=== PATIENT | male | born 1985 | race Caucasian/White ===

== ENCOUNTER 2022-11-03 11:46 | Inpatient (IN) | payer OTHER ==
[2022-11-03 12:29] VITALS: BMI 21.7
[2022-11-03] MEDS ORDERED: ONDANSETRON *ODT* 4 MG TABLET SL PRN (13:08)
[2022-11-03] MEDS ORDERED: IBUPROFEN 400 MG TABLET (FP) PO PRN (13:08)
[2022-11-03] MEDS ORDERED: ACETAMINOPHEN 325 MG TABLET (FP) PO PRN ×2 (13:08)
[2022-11-03] MEDS ORDERED: NICOTINE 21 MG/24 HOURS TOPICAL PATCH TD PRN (13:08)
[2022-11-03] MEDS ORDERED: MAGNESIUM HYDROX 2400MG/30ML ORAL SUSPENSION 30 ML CUP PO PRN (13:08)
[2022-11-03] MEDS ORDERED: POLYETHYLENE GLYCOL (HEALTHYLAX) 3350 17 GM PACKET PO PRN (13:08)
[2022-11-03] MEDS ORDERED: cloNIDine HCL 0.1 MG TABLET PO ONE (13:08)
[2022-11-03] MEDS ORDERED: BISMUTH SUBSALICYLATE 524 MG/30 ML PO PRN (13:08)
[2022-11-03] MEDS ORDERED: BENZOCAINE/MENTHOL (CHLORASEPTIC ) LOZENGE MM PRN (13:08)
[2022-11-03] MEDS ORDERED: BUPRENORPHINE HCL 150 MCG, BUPRENORPHINE HCL 75 MCG BC PRN (13:08)
[2022-11-03] MEDS ORDERED: MAG HYDROX/AL HYDROX/SIMETH 30 ML UNIT-DOSE CUP PO PRN (13:08)
[2022-11-03] MEDS ORDERED: NALOXONE HCL (KLOXXADO) 8 MG SPRAY NS PRN (13:08)
[2022-11-03] MEDS ORDERED: LOPERAMIDE HCL 2 MG CAPSULE PO PRN (13:08)
[2022-11-03] MEDS ORDERED: NICOTINE 10 MG CARTRIDGE (INHALER) IH PRN (13:08)
[2022-11-03] MEDS ORDERED: IBUPROFEN 600 MG TABLET (FP) PO PRN (13:08)
[2022-11-03] MEDS: PRENATAL VITAMINS W/ FOLIC ACID TABLET (FP) PO SCH (14:38)
[2022-11-03] MEDS: METHOCARBAMOL 500 MG TABLET PO PRN ×2 (14:38→22:32)
[2022-11-03] MEDS: diazePAM 5 MG TABLET PO PRN ×2 (14:39→22:33)
[2022-11-03] MEDS: THIAMINE HCL 100 MG TABLET (FP) PO SCH (22:31)
[2022-11-03] MEDS: MELATONIN 5 MG TABLETS PO SCH (22:31)
[2022-11-03] MEDS: hydrOXYzine PAMOATE 25 MG CAPSULE (FP) PO PRN (22:32)
[2022-11-03] MEDS: cloNIDine HCL 0.1 MG TABLET PO PRN (22:33)
[2022-11-04] MEDS ORDERED: BUPRENORPHINE HCL 150 MCG, BUPRENORPHINE HCL 75 MCG BC PRN
[2022-11-04] MEDS: BUPRENORPHINE HCL 150 MCG, BUPRENORPHINE HCL 75 MCG BC SCH ×2 (06:31→18:23)
[2022-11-04] MEDS: PRENATAL VITAMINS W/ FOLIC ACID TABLET (FP) PO SCH (10:21)
[2022-11-04] MEDS: hydrOXYzine PAMOATE 25 MG CAPSULE (FP) PO PRN (10:23)
[2022-11-04] MEDS: diazePAM 5 MG TABLET PO PRN ×2 (10:23→22:28)
[2022-11-04 11:55] LABS: HEMATOCRIT 41.3 % (35.4-49); HEMOGLOBIN 13.5 GM/dL (11.7-16.9); MCH 27.2 pg (25.7-33.7); MCHC 32.6 g/dl (32.0-35.9); MEAN CELL VOLUME 83.5 fl (80-96); MEAN PLT VOLUME 9.8 fl (7.5-11.1); PLATELET COUNT 218 10^3/uL (134-434); RBC 4.95 M/mm3 (4.00-5.60); RDW 16.2 % (11.9-15.9); WHITE BLOOD COUNT 6.2 K/mm3 (4.0-10.0)
[2022-11-04 12:02] LABS: ALBUMIN 3.4 g/dl (3.4-5.0); BLOOD UREA NITROGEN 8.3 mg/dL (7-18); CALCIUM 8.7 mg/dL (8.5-10.1)
[2022-11-04 12:04] LABS: CREATININE 0.6 mg/dL (0.55-1.3)
[2022-11-04 12:06] LABS: BILIRUBIN,TOTAL 0.3 mg/dL (0.2-1); TOT PROT 7.3 g/dl (6.4-8.2)
[2022-11-04] MEDS: cloNIDine HCL 0.1 MG TABLET PO PRN (12:37)
[2022-11-04] MEDS: DICYCLOMINE HCL 10 MG CAPSULE PO PRN (18:24)
[2022-11-04] MEDS: THIAMINE HCL 100 MG TABLET (FP) PO SCH (22:26)
[2022-11-04] MEDS: MELATONIN 5 MG TABLETS PO SCH (22:26)
[2022-11-04] MEDS: METHOCARBAMOL 500 MG TABLET PO PRN (22:27)
[2022-11-05] MEDS: BUPRENORPHINE/NALOXONE 2 MG/0.5 MG FILM PACKET SL SCH ×2 (05:47→17:13)
[2022-11-05] MEDS: PRENATAL VITAMINS W/ FOLIC ACID TABLET (FP) PO SCH (10:04)
[2022-11-05] MEDS: diazePAM 5 MG TABLET PO PRN (10:05)
[2022-11-05] MEDS: cloNIDine HCL 0.1 MG TABLET PO PRN ×3 (10:13→18:54)
[2022-11-05] MEDS: hydrOXYzine PAMOATE 25 MG CAPSULE (FP) PO PRN ×2 (12:19→18:54)
[2022-11-05] MEDS: METHOCARBAMOL 500 MG TABLET PO PRN ×2 (12:19→18:53)
[2022-11-05] MEDS: DICYCLOMINE HCL 10 MG CAPSULE PO PRN (18:53)
[2022-11-05] MEDS ORDERED: diazePAM 5 MG TABLET PO ONE (22:25)
[2022-11-05] MEDS: THIAMINE HCL 100 MG TABLET (FP) PO SCH (22:34)
[2022-11-05] MEDS: MELATONIN 5 MG TABLETS PO SCH (22:34)
[2022-11-05] MEDS: risperiDONE 1 MG TABLET PO SCH (22:34)
[2022-11-06] MEDS: BUPRENORPHINE/NALOXONE 4 MG/1 MG FILM PACKET SL SCH ×2 (05:36→17:16)
[2022-11-06] MEDS: risperiDONE 1 MG TABLET PO SCH ×2 (10:05→22:10)
[2022-11-06] MEDS: PRENATAL VITAMINS W/ FOLIC ACID TABLET (FP) PO SCH (10:05)
[2022-11-06] MEDS: hydrOXYzine PAMOATE 25 MG CAPSULE (FP) PO PRN ×2 (10:07→22:10)
[2022-11-06] MEDS: cloNIDine HCL 0.1 MG TABLET PO PRN ×2 (11:22→21:04)
[2022-11-06] MEDS: METHOCARBAMOL 500 MG TABLET PO PRN ×2 (11:23→17:15)
[2022-11-06] MEDS: THIAMINE HCL 100 MG TABLET (FP) PO SCH (22:10)
[2022-11-06] MEDS: MELATONIN 5 MG TABLETS PO SCH (22:11)
[2022-11-07] MEDS ORDERED: BUPRENORPHINE/NALOXONE 8 MG/2 MG FILM PACKET SL ONE (06:00)
[2022-11-07] MEDS: risperiDONE 1 MG TABLET PO SCH (09:06)
[2022-11-07] MEDS: PRENATAL VITAMINS W/ FOLIC ACID TABLET (FP) PO SCH (09:06)
[2022-11-07 11:26] VITALS: BP 144/79; PULSE 90; RESP 16; TEMP 96.4
== END 2022-11-07 12:40 | disposition other institution (70) | DRG 773 ==
LOC: YASAS 11:46 → Y6N 14:01 → Y3N 21:18
PROVIDERS: ADMIT Allergy & Immunology; ATTEND Family Medicine
PROC: HZ2ZZZZ Detoxification Services for Substance Abuse Treatment (ICD-10-PCS; principal; 2022-11-03)
DX: F11.23 Opioid dependence with withdrawal (principal); F14.20 Cocaine dependence, uncomplicated; F16.20 Hallucinogen dependence, uncomplicated; F12.20 Cannabis dependence, uncomplicated; F17.210 Nicotine dependence, cigarettes, uncomplicated; F19.24 Other psychoactive substance dependence with psychoactive substance-induced mood disorder; F31.9 Bipolar disorder, unspecified; F41.9 Anxiety disorder, unspecified; G47.00 Insomnia, unspecified; Z62.810 Personal history of physical and sexual abuse in childhood; Z86.19 Personal history of other infectious and parasitic diseases; Z86.59 Personal history of other mental and behavioral disorders; Z91.199 Patient's noncompliance with other medical treatment and regimen due to unspecified reason
CPT/HCPCS: 36415; 80053; 82962; 85027; 86780; C9803-CS; U0003; U0005

== ENCOUNTER 2022-11-07 12:45 | Inpatient (IN) | payer OTHER ==
[2022-11-07] MEDS ORDERED: MAGNESIUM HYDROX 2400MG/30ML ORAL SUSPENSION 30 ML CUP PO PRN (13:59)
[2022-11-07] MEDS ORDERED: IBUPROFEN 400 MG TABLET (FP) PO PRN (13:59)
[2022-11-07] MEDS ORDERED: POLYETHYLENE GLYCOL (HEALTHYLAX) 3350 17 GM PACKET PO PRN (13:59)
[2022-11-07] MEDS ORDERED: NICOTINE 7 MG/24 HOURS TOPICAL PATCH TD PRN (13:59)
[2022-11-07] MEDS ORDERED: P-EPHED 60MG/TRIPROLIDI 2.5MG TABLET PO PRN (13:59)
[2022-11-07] MEDS ORDERED: NICOTINE 10 MG CARTRIDGE (INHALER) IH PRN (13:59)
[2022-11-07] MEDS ORDERED: guaiFENesin 200 MG/10 ML 10 ML UNIT-DOSE CUPS PO PRN (13:59)
[2022-11-07] MEDS ORDERED: ACETAMINOPHEN 325 MG TABLET (FP) PO PRN (13:59)
[2022-11-07] MEDS ORDERED: BENZOCAINE/MENTHOL (CHLORASEPTIC ) LOZENGE MM PRN (13:59)
[2022-11-07] MEDS: AMOX TR/POT CLAV 875MG/125MG TABLETS (FP) PO SCH (17:36)
[2022-11-07] MEDS: THIAMINE HCL 100 MG TABLET (FP) PO SCH (21:11)
[2022-11-07] MEDS: MELATONIN 5 MG TABLETS PO SCH (21:11)
[2022-11-07] MEDS: risperiDONE 1 MG TABLET PO SCH (21:12)
[2022-11-07] MEDS ORDERED: BUPRENORPHINE/NALOXONE 8 MG/2 MG FILM PACKET SL SCH (22:00)
[2022-11-08] MEDS: hydrOXYzine PAMOATE 25 MG CAPSULE (FP) PO PRN ×3 (06:33→21:03)
[2022-11-08] MEDS: AMOX TR/POT CLAV 875MG/125MG TABLETS (FP) PO SCH ×2 (07:15→16:35)
[2022-11-08] MEDS: BUPRENORPHINE/NALOXONE 8 MG/2 MG FILM PACKET SL SCH ×2 (08:48→18:30)
[2022-11-08] MEDS: risperiDONE 1 MG TABLET PO SCH ×2 (09:19→21:03)
[2022-11-08] MEDS: PRENATAL VITAMINS W/ FOLIC ACID TABLET (FP) PO SCH (09:19)
[2022-11-08] MEDS ORDERED: BUPRENORPHINE/NALOXONE 8 MG/2 MG FILM PACKET SL SCH (10:00)
[2022-11-08] MEDS ORDERED: FLU VACC QS2022-23(6MOS UP)/PF 60 MCG/0.5 ML SYRINGE IM ONE (12:00)
[2022-11-08] MEDS ORDERED: PNEUMOC 20-VAL CONJ-DIP CRM/PF 0.5 ML SYRINGE IM ONE (12:00)
[2022-11-08 12:32] LABS: HIV INTERPRETATION NEGATIVE (NEGATIVE)
[2022-11-08] MEDS: MELATONIN 5 MG TABLETS PO SCH (21:03)
[2022-11-08] MEDS: THIAMINE HCL 100 MG TABLET (FP) PO SCH (21:03)
[2022-11-09] MEDS: BUPRENORPHINE/NALOXONE 8 MG/2 MG FILM PACKET SL SCH ×2 (06:10→17:39)
[2022-11-09] MEDS: AMOX TR/POT CLAV 875MG/125MG TABLETS (FP) PO SCH ×2 (07:15→17:39)
[2022-11-09] MEDS: hydrOXYzine PAMOATE 25 MG CAPSULE (FP) PO PRN ×2 (07:15→21:07)
[2022-11-09] MEDS: risperiDONE 1 MG TABLET PO SCH ×2 (09:49→21:07)
[2022-11-09] MEDS: PRENATAL VITAMINS W/ FOLIC ACID TABLET (FP) PO SCH (09:49)
[2022-11-09] MEDS: MAG HYDROX/AL HYDROX/SIMETH 30 ML UNIT-DOSE CUP PO PRN (10:06)
[2022-11-09] MEDS: THIAMINE HCL 100 MG TABLET (FP) PO SCH (21:07)
[2022-11-09] MEDS: MELATONIN 5 MG TABLETS PO SCH (21:07)
[2022-11-09] MEDS: BACLOFEN 10 MG TABLET (FP) PO PRN (21:07)
[2022-11-10] MEDS: BUPRENORPHINE/NALOXONE 8 MG/2 MG FILM PACKET SL SCH ×2 (06:34→17:45)
[2022-11-10] MEDS: hydrOXYzine PAMOATE 25 MG CAPSULE (FP) PO PRN ×3 (06:34→21:06)
[2022-11-10] MEDS: AMOX TR/POT CLAV 875MG/125MG TABLETS (FP) PO SCH ×2 (07:41→16:45)
[2022-11-10] MEDS: BACLOFEN 10 MG TABLET (FP) PO PRN ×2 (08:53→21:06)
[2022-11-10] MEDS: PRENATAL VITAMINS W/ FOLIC ACID TABLET (FP) PO SCH (10:18)
[2022-11-10] MEDS: risperiDONE 1 MG TABLET PO SCH (10:18)
[2022-11-10] MEDS: MAG HYDROX/AL HYDROX/SIMETH 30 ML UNIT-DOSE CUP PO PRN (15:00)
[2022-11-10] MEDS: LOPERAMIDE HCL 2 MG CAPSULE PO PRN (18:21)
[2022-11-10] MEDS: THIAMINE HCL 100 MG TABLET (FP) PO SCH (21:06)
[2022-11-10] MEDS: MELATONIN 5 MG TABLETS PO SCH (21:06)
[2022-11-10] MEDS: QUEtiapine FUMARATE 100 MG TABLET (FP) PO SCH (21:07)
[2022-11-10] MEDS ORDERED: SUVOREXANT 10 MG TABLET PO PRN (22:00)
[2022-11-11] MEDS: BUPRENORPHINE/NALOXONE 8 MG/2 MG FILM PACKET SL SCH ×2 (06:19→17:51)
[2022-11-11] MEDS: AMOX TR/POT CLAV 875MG/125MG TABLETS (FP) PO SCH ×2 (07:07→16:49)
[2022-11-11] MEDS: PRENATAL VITAMINS W/ FOLIC ACID TABLET (FP) PO SCH (09:03)
[2022-11-11] MEDS: QUEtiapine FUMARATE 50 MG TABLET PO SCH (09:04)
[2022-11-11] MEDS: hydrOXYzine PAMOATE 25 MG CAPSULE (FP) PO PRN ×2 (09:04→21:01)
[2022-11-11] MEDS: MAG HYDROX/AL HYDROX/SIMETH 30 ML UNIT-DOSE CUP PO PRN (11:05)
[2022-11-11] MEDS: LOPERAMIDE HCL 2 MG CAPSULE PO PRN (16:50)
[2022-11-11] MEDS: THIAMINE HCL 100 MG TABLET (FP) PO SCH (21:01)
[2022-11-11] MEDS: QUEtiapine FUMARATE 100 MG TABLET (FP) PO SCH (21:01)
[2022-11-11] MEDS: MELATONIN 5 MG TABLETS PO SCH (21:01)
[2022-11-12] MEDS: BUPRENORPHINE/NALOXONE 8 MG/2 MG FILM PACKET SL SCH ×2 (06:05→19:40)
[2022-11-12] MEDS: AMOX TR/POT CLAV 875MG/125MG TABLETS (FP) PO SCH ×2 (07:28→16:45)
[2022-11-12] MEDS: PRENATAL VITAMINS W/ FOLIC ACID TABLET (FP) PO SCH (09:58)
[2022-11-12] MEDS: QUEtiapine FUMARATE 50 MG TABLET PO SCH (09:58)
[2022-11-12] MEDS: hydrOXYzine PAMOATE 25 MG CAPSULE (FP) PO PRN ×3 (09:59→21:05)
[2022-11-12] MEDS: BACLOFEN 10 MG TABLET (FP) PO PRN ×2 (15:26→21:05)
[2022-11-12] MEDS: GABAPENTIN 100 MG CAPSULE PO SCH ×2 (15:26→21:05)
[2022-11-12] MEDS: MELATONIN 5 MG TABLETS PO SCH (21:04)
[2022-11-12] MEDS: THIAMINE HCL 100 MG TABLET (FP) PO SCH (21:04)
[2022-11-12] MEDS: QUEtiapine FUMARATE 200 MG TABLET PO SCH (21:06)
[2022-11-13] MEDS: BUPRENORPHINE/NALOXONE 8 MG/2 MG FILM PACKET SL SCH ×2 (06:46→17:40)
[2022-11-13] MEDS: GABAPENTIN 100 MG CAPSULE PO SCH ×3 (06:46→21:17)
[2022-11-13] MEDS: hydrOXYzine PAMOATE 25 MG CAPSULE (FP) PO PRN ×2 (06:47→15:37)
[2022-11-13] MEDS: AMOX TR/POT CLAV 875MG/125MG TABLETS (FP) PO SCH ×2 (08:48→17:40)
[2022-11-13] MEDS: QUEtiapine FUMARATE 100 MG TABLET (FP) PO SCH (09:56)
[2022-11-13] MEDS: PRENATAL VITAMINS W/ FOLIC ACID TABLET (FP) PO SCH (09:56)
[2022-11-13] MEDS: THIAMINE HCL 100 MG TABLET (FP) PO SCH (21:17)
[2022-11-13] MEDS: MELATONIN 5 MG TABLETS PO SCH (21:17)
[2022-11-13] MEDS: QUEtiapine FUMARATE 200 MG TABLET PO SCH (21:17)
[2022-11-13] MEDS: BACLOFEN 10 MG TABLET (FP) PO PRN (21:17)
[2022-11-14] MEDS: BUPRENORPHINE/NALOXONE 8 MG/2 MG FILM PACKET SL SCH ×2 (06:16→17:49)
[2022-11-14] MEDS: GABAPENTIN 100 MG CAPSULE PO SCH ×3 (06:16→21:00)
[2022-11-14] MEDS: AMOX TR/POT CLAV 875MG/125MG TABLETS (FP) PO SCH ×2 (07:20→17:49)
[2022-11-14] MEDS: PRENATAL VITAMINS W/ FOLIC ACID TABLET (FP) PO SCH (10:10)
[2022-11-14] MEDS: QUEtiapine FUMARATE 100 MG TABLET (FP) PO SCH (10:11)
[2022-11-14] MEDS: hydrOXYzine PAMOATE 25 MG CAPSULE (FP) PO PRN (10:12)
[2022-11-14] MEDS: MELATONIN 5 MG TABLETS PO SCH (21:00)
[2022-11-14] MEDS: THIAMINE HCL 100 MG TABLET (FP) PO SCH (21:00)
[2022-11-14] MEDS: QUEtiapine FUMARATE 200 MG TABLET PO SCH (21:00)
[2022-11-15] MEDS: BUPRENORPHINE/NALOXONE 8 MG/2 MG FILM PACKET SL SCH ×2 (06:09→17:28)
[2022-11-15] MEDS: GABAPENTIN 100 MG CAPSULE PO SCH ×3 (06:09→21:08)
[2022-11-15] MEDS: AMOX TR/POT CLAV 875MG/125MG TABLETS (FP) PO SCH ×2 (07:03→17:28)
[2022-11-15] MEDS: QUEtiapine FUMARATE 100 MG TABLET (FP) PO SCH (09:15)
[2022-11-15] MEDS: PRENATAL VITAMINS W/ FOLIC ACID TABLET (FP) PO SCH (09:15)
[2022-11-15] MEDS: hydrOXYzine PAMOATE 25 MG CAPSULE (FP) PO PRN ×3 (09:15→21:08)
[2022-11-15] MEDS: THIAMINE HCL 100 MG TABLET (FP) PO SCH (21:08)
[2022-11-15] MEDS: MELATONIN 5 MG TABLETS PO SCH (21:08)
[2022-11-15] MEDS: QUEtiapine FUMARATE 200 MG TABLET PO SCH (21:08)
[2022-11-16] MEDS: GABAPENTIN 100 MG CAPSULE PO SCH ×3 (06:13→21:08)
[2022-11-16] MEDS: BUPRENORPHINE/NALOXONE 8 MG/2 MG FILM PACKET SL SCH ×2 (06:13→17:38)
[2022-11-16] MEDS: AMOX TR/POT CLAV 875MG/125MG TABLETS (FP) PO SCH ×2 (08:04→17:38)
[2022-11-16] MEDS: PRENATAL VITAMINS W/ FOLIC ACID TABLET (FP) PO SCH (09:57)
[2022-11-16] MEDS: hydrOXYzine PAMOATE 25 MG CAPSULE (FP) PO PRN ×3 (09:58→21:09)
[2022-11-16] MEDS: QUEtiapine FUMARATE 100 MG TABLET (FP) PO SCH (09:58)
[2022-11-16] MEDS: MELATONIN 5 MG TABLETS PO SCH (21:05)
[2022-11-16] MEDS: THIAMINE HCL 100 MG TABLET (FP) PO SCH (21:05)
[2022-11-16] MEDS: QUEtiapine FUMARATE 200 MG TABLET PO SCH (21:08)
[2022-11-17] MEDS: GABAPENTIN 100 MG CAPSULE PO SCH ×3 (06:09→21:11)
[2022-11-17] MEDS: BUPRENORPHINE/NALOXONE 8 MG/2 MG FILM PACKET SL SCH ×2 (06:09→17:56)
[2022-11-17] MEDS: AMOX TR/POT CLAV 875MG/125MG TABLETS (FP) PO SCH ×2 (08:33→17:57)
[2022-11-17] MEDS: QUEtiapine FUMARATE 100 MG TABLET (FP) PO SCH (09:35)
[2022-11-17] MEDS: hydrOXYzine PAMOATE 25 MG CAPSULE (FP) PO PRN ×2 (09:35→21:12)
[2022-11-17] MEDS: PRENATAL VITAMINS W/ FOLIC ACID TABLET (FP) PO SCH (09:35)
[2022-11-17] MEDS: BACLOFEN 10 MG TABLET (FP) PO PRN (21:11)
[2022-11-17] MEDS: THIAMINE HCL 100 MG TABLET (FP) PO SCH (21:11)
[2022-11-17] MEDS: QUEtiapine FUMARATE 200 MG TABLET PO SCH (21:11)
[2022-11-17] MEDS: MELATONIN 5 MG TABLETS PO SCH (21:12)
[2022-11-18] MEDS: BUPRENORPHINE/NALOXONE 8 MG/2 MG FILM PACKET SL SCH ×2 (06:16→17:32)
[2022-11-18] MEDS: GABAPENTIN 100 MG CAPSULE PO SCH ×3 (06:16→21:16)
[2022-11-18] MEDS: hydrOXYzine PAMOATE 25 MG CAPSULE (FP) PO PRN ×4 (08:27→21:16)
[2022-11-18] MEDS: AMOX TR/POT CLAV 875MG/125MG TABLETS (FP) PO SCH ×2 (08:27→17:32)
[2022-11-18] MEDS: PRENATAL VITAMINS W/ FOLIC ACID TABLET (FP) PO SCH (10:15)
[2022-11-18] MEDS: QUEtiapine FUMARATE 100 MG TABLET (FP) PO SCH (10:15)
[2022-11-18] MEDS: QUEtiapine FUMARATE 200 MG TABLET PO SCH (21:16)
[2022-11-18] MEDS: THIAMINE HCL 100 MG TABLET (FP) PO SCH (21:16)
[2022-11-18] MEDS: BACLOFEN 10 MG TABLET (FP) PO PRN (21:16)
[2022-11-18] MEDS: MELATONIN 5 MG TABLETS PO SCH (22:51)
[2022-11-19] MEDS: GABAPENTIN 100 MG CAPSULE PO SCH (06:11)
[2022-11-19] MEDS: BUPRENORPHINE/NALOXONE 8 MG/2 MG FILM PACKET SL SCH (06:11)
[2022-11-19] MEDS: AMOX TR/POT CLAV 875MG/125MG TABLETS (FP) PO SCH (07:40)
[2022-11-19 08:07] VITALS: BP 119/72; PULSE 69; RESP 16; TEMP 97.3
[2022-11-19] MEDS: QUEtiapine FUMARATE 100 MG TABLET (FP) PO SCH (09:25)
[2022-11-19] MEDS: hydrOXYzine PAMOATE 25 MG CAPSULE (FP) PO PRN (09:25)
[2022-11-19] MEDS: PRENATAL VITAMINS W/ FOLIC ACID TABLET (FP) PO SCH (09:25)
== END 2022-11-19 10:52 | disposition home or self-care (01) | DRG 772 ==
LOC: YASAS 12:45 → Y3E 12:46
PROVIDERS: ADMIT Allergy & Immunology; ATTEND Psychiatry & Neurology Pain Medicine
PROC: HZ42ZZZ Group Counseling for Substance Abuse Treatment, Cognitive-Behavioral (ICD-10-PCS; principal; 2022-11-07)
DX: F11.20 Opioid dependence, uncomplicated (principal); F14.20 Cocaine dependence, uncomplicated; F16.10 Hallucinogen abuse, uncomplicated; F12.10 Cannabis abuse, uncomplicated; F17.210 Nicotine dependence, cigarettes, uncomplicated; F31.9 Bipolar disorder, unspecified; F41.9 Anxiety disorder, unspecified; G47.00 Insomnia, unspecified; Z86.19 Personal history of other infectious and parasitic diseases; Z99.89 Dependence on other enabling machines and devices; Z59.00 Homelessness unspecified
CPT/HCPCS: 36415; 82140; 83036; 86803; 87389; 87522; 90677; G0008; J0475; Q2036

== ENCOUNTER 2022-12-04 18:29 | Inpatient (IN) | payer OTHER ==
[2022-12-04 19:36] VITALS: RESP 18; BMI 25.7
[2022-12-04] MEDS ORDERED: NALOXONE HCL (KLOXXADO) 8 MG SPRAY NS PRN (22:20)
[2022-12-04] MEDS ORDERED: METHOCARBAMOL 500 MG TABLET PO PRN (22:20)
[2022-12-04] MEDS ORDERED: BENZOCAINE/MENTHOL (CHLORASEPTIC ) LOZENGE MM PRN (22:20)
[2022-12-04] MEDS ORDERED: MAGNESIUM HYDROX 2400MG/30ML ORAL SUSPENSION 30 ML CUP PO PRN (22:20)
[2022-12-04] MEDS ORDERED: ACETAMINOPHEN 325 MG TABLET (FP) PO PRN ×2 (22:20)
[2022-12-04] MEDS ORDERED: NICOTINE POLACRILEX 2 MG GUM BUC PRN (22:20)
[2022-12-04] MEDS ORDERED: LOPERAMIDE HCL 2 MG CAPSULE PO PRN (22:20)
[2022-12-04] MEDS ORDERED: POLYETHYLENE GLYCOL (HEALTHYLAX) 3350 17 GM PACKET PO PRN (22:20)
[2022-12-04] MEDS ORDERED: MAG HYDROX/AL HYDROX/SIMETH 30 ML UNIT-DOSE CUP PO PRN (22:20)
[2022-12-04] MEDS ORDERED: ONDANSETRON *ODT* 4 MG TABLET SL PRN (22:20)
[2022-12-04] MEDS ORDERED: hydrOXYzine PAMOATE 25 MG CAPSULE (FP) PO PRN (22:20)
[2022-12-04] MEDS ORDERED: DICYCLOMINE HCL 10 MG CAPSULE PO PRN (22:20)
[2022-12-05] MEDS ORDERED: guaiFENesin 200 MG/10 ML 10 ML UNIT-DOSE CUPS PO PRN (05:11)
[2022-12-05 05:46] VITALS: BP 107/65; PULSE 60; TEMP 98.4
[2022-12-05] MEDS ORDERED: cloNIDine HCL 0.1 MG TABLET PO PRN (08:35)
[2022-12-05] MEDS ORDERED: methaDONE HCL 10 MG TABLET (FOR DETOX USE ONLY) ONE (09:50)
[2022-12-05] MEDS ORDERED: PRENATAL VITAMINS W/ FOLIC ACID TABLET (FP) PO SCH (10:00)
[2022-12-05] MEDS ORDERED: NICOTINE 14 MG/24 HOURS TOPICAL PATCH TD SCH (10:00)
[2022-12-05] MEDS ORDERED: methaDONE HCL 10 MG TABLET (FOR DETOX USE ONLY) PO ONE (10:00)
[2022-12-05] MEDS ORDERED: NICOTINE 14 MG/24 HOURS TOPICAL PATCH TD ONE (10:01)
[2022-12-05] MEDS ORDERED: PRENATAL VITAMINS W/ FOLIC ACID TABLET (FP) PO ONE (10:01)
[2022-12-05 14:56] LABS: ALBUMIN 3.4 g/dl (3.4-5.0); CALCIUM 8.8 mg/dL (8.5-10.1); HEMATOCRIT 37.8 % (35.4-49); HEMOGLOBIN 12.8 GM/dL (11.7-16.9); MCHC 33.9 g/dl (32.0-35.9); MEAN CELL VOLUME 82.5 fl (80-96); MEAN PLT VOLUME 9.5 fl (7.5-11.1); PLATELET COUNT 206 10^3/uL (134-434); RBC 4.58 M/mm3 (4.00-5.60); RDW 15.1 % (11.9-15.9); WHITE BLOOD COUNT 5.7 K/mm3 (4.0-10.0)
[2022-12-05 14:57] LABS: BLOOD UREA NITROGEN 10.6 mg/dL (7-18)
[2022-12-05 14:59] LABS: CREATININE 0.5 mg/dL (0.55-1.3)
[2022-12-05 15:01] LABS: BILIRUBIN,TOTAL 0.4 mg/dL (0.2-1); TOT PROT 7.2 g/dl (6.4-8.2)
[2022-12-05] MEDS ORDERED: MELATONIN 5 MG TABLETS PO SCH (22:00)
[2022-12-05] MEDS ORDERED: THIAMINE HCL 100 MG TABLET (FP) PO SCH (22:00)
[2022-12-07] MEDS ORDERED: methaDONE HCL 10 MG TABLET (FOR DETOX USE ONLY) PO ONE (10:00)
[2022-12-09] MEDS ORDERED: methaDONE HCL 10 MG TABLET (FOR DETOX USE ONLY) PO ONE (10:00)
== END 2022-12-05 10:25 | disposition left against medical advice (07) | DRG 770 ==
LOC: YASAS 18:29 → Y3N 12-05 09:48
PROVIDERS: ADMIT Allergy & Immunology; ATTEND Surgery
PROC: HZ2ZZZZ Detoxification Services for Substance Abuse Treatment (ICD-10-PCS; principal; 2022-12-05)
DX: F11.23 Opioid dependence with withdrawal (principal); F14.20 Cocaine dependence, uncomplicated; F17.210 Nicotine dependence, cigarettes, uncomplicated; F19.24 Other psychoactive substance dependence with psychoactive substance-induced mood disorder; F41.9 Anxiety disorder, unspecified; B18.2 Chronic viral hepatitis C; R00.1 Bradycardia, unspecified; Z88.2 Allergy status to sulfonamides; Z88.6 Allergy status to analgesic agent; Z59.00 Homelessness unspecified
CPT/HCPCS: 36415; 80053; 85027; 87811; C9803-CS; U0003; U0005

== ENCOUNTER 2023-01-04 17:45 | Inpatient (IN) | payer OTHER ==
[2023-01-04 18:50] VITALS: BMI 25.4
[2023-01-04] MEDS ORDERED: BENZOCAINE/MENTHOL (CHLORASEPTIC ) LOZENGE MM PRN (20:18)
[2023-01-04] MEDS ORDERED: MAGNESIUM HYDROX 2400MG/30ML ORAL SUSPENSION 30 ML CUP PO PRN (20:18)
[2023-01-04] MEDS ORDERED: POLYETHYLENE GLYCOL (HEALTHYLAX) 3350 17 GM PACKET PO PRN (20:18)
[2023-01-04] MEDS ORDERED: MELATONIN 5 MG TABLETS PO PRN (20:18)
[2023-01-04] MEDS ORDERED: NICOTINE 10 MG CARTRIDGE (INHALER) IH PRN (20:18)
[2023-01-04] MEDS ORDERED: METHOCARBAMOL 500 MG TABLET PO PRN (20:18)
[2023-01-04] MEDS ORDERED: MAG HYDROX/AL HYDROX/SIMETH 30 ML UNIT-DOSE CUP PO PRN (20:18)
[2023-01-04] MEDS ORDERED: hydrOXYzine PAMOATE 25 MG CAPSULE (FP) PO PRN (20:18)
[2023-01-04] MEDS ORDERED: P-EPHED 60MG/TRIPROLIDI 2.5MG TABLET PO PRN (20:18)
[2023-01-04] MEDS ORDERED: NALOXONE HCL (KLOXXADO) 8 MG SPRAY NS PRN (20:18)
[2023-01-04] MEDS ORDERED: NICOTINE POLACRILEX 2 MG GUM BUC PRN (20:18)
[2023-01-04] MEDS ORDERED: DICYCLOMINE HCL 10 MG CAPSULE PO PRN (20:18)
[2023-01-04] MEDS ORDERED: ACETAMINOPHEN 325 MG TABLET (FP) PO PRN (20:18)
[2023-01-04] MEDS ORDERED: guaiFENesin 600 MG TABLET.ER (FP) PO PRN (20:18)
[2023-01-04] MEDS ORDERED: NALOXONE HCL 0.4 MG/ML VIAL IM PRN (20:18)
[2023-01-04] MEDS ORDERED: ONDANSETRON *ODT* 4 MG TABLET SL PRN (20:18)
[2023-01-04] MEDS ORDERED: LOPERAMIDE HCL 2 MG CAPSULE PO PRN (20:18)
[2023-01-04] MEDS ORDERED: BENZONATATE 200 MG CAPSULE PO PRN (20:18)
[2023-01-04] MEDS ORDERED: cloNIDine HCL 0.1 MG TABLET PO PRN (20:20)
[2023-01-04] MEDS ORDERED: methaDONE HCL 10 MG TABLET (FOR DETOX USE ONLY) PO ONE (20:20)
[2023-01-04] MEDS ORDERED: TRIMETHOBENZAMIDE HCL 200MG/2ML INJ IM ONE ×2 (21:30→22:16)
[2023-01-04] MEDS ORDERED: THIAMINE HCL 100 MG TABLET (FP) PO SCH (22:00)
[2023-01-04] MEDS ORDERED: methaDONE HCL 10 MG TABLET (FOR DETOX USE ONLY) ONE (22:15)
[2023-01-05 09:09] VITALS: BP 110/69; PULSE 75; RESP 20; TEMP 98
[2023-01-05] MEDS ORDERED: PRENATAL VITAMINS W/ FOLIC ACID TABLET (FP) PO SCH (10:00)
[2023-01-05] MEDS ORDERED: methaDONE HCL 10 MG TABLET (FOR DETOX USE ONLY) PO ONE (10:00)
[2023-01-05] MEDS ORDERED: QUEtiapine FUMARATE 100 MG TABLET (FP) PO SCH (22:00)
[2023-01-06] MEDS ORDERED: methaDONE HCL 10 MG TABLET (FOR DETOX USE ONLY) PO ONE (10:00)
[2023-01-07] MEDS ORDERED: methaDONE HCL 10 MG TABLET (FOR DETOX USE ONLY) PO ONE (10:00)
== END 2023-01-05 11:05 | disposition left against medical advice (07) | DRG 770 ==
LOC: YASAS 17:45 → Y3N 21:03
PROVIDERS: ADMIT Allergy & Immunology; ATTEND Surgery
PROC: HZ2ZZZZ Detoxification Services for Substance Abuse Treatment (ICD-10-PCS; principal; 2023-01-04)
DX: F11.23 Opioid dependence with withdrawal (principal); F14.20 Cocaine dependence, uncomplicated; F17.210 Nicotine dependence, cigarettes, uncomplicated; F31.9 Bipolar disorder, unspecified; F19.24 Other psychoactive substance dependence with psychoactive substance-induced mood disorder; G47.00 Insomnia, unspecified; B18.2 Chronic viral hepatitis C; Z62.810 Personal history of physical and sexual abuse in childhood; Z88.2 Allergy status to sulfonamides; Z88.6 Allergy status to analgesic agent
CPT/HCPCS: C9803-CS; U0003; U0005

== ENCOUNTER 2023-05-20 11:18 | Inpatient (IN) | payer OTHER ==
[2023-05-20 12:04] VITALS: BMI 20.3
[2023-05-20] MEDS ORDERED: BISMUTH SUBSALICYLATE 524 MG/30 ML PO PRN (12:31)
[2023-05-20] MEDS ORDERED: BENZOCAINE/MENTHOL (CHLORASEPTIC ) LOZENGE MM PRN (12:31)
[2023-05-20] MEDS ORDERED: NALOXONE HCL 0.4 MG/ML VIAL IM PRN (12:31)
[2023-05-20] MEDS ORDERED: hydrOXYzine PAMOATE 25 MG CAPSULE (FP) PO PRN (12:31)
[2023-05-20] MEDS ORDERED: MAGNESIUM HYDROX 2400MG/30ML ORAL SUSPENSION 30 ML CUP PO PRN (12:31)
[2023-05-20] MEDS ORDERED: LOPERAMIDE HCL 2 MG CAPSULE PO PRN (12:31)
[2023-05-20] MEDS ORDERED: ONDANSETRON *ODT* 4 MG TABLET SL PRN (12:31)
[2023-05-20] MEDS ORDERED: BENZONATATE 200 MG CAPSULE PO PRN (12:31)
[2023-05-20] MEDS ORDERED: ACETAMINOPHEN 325 MG TABLET (FP) PO PRN (12:31)
[2023-05-20] MEDS ORDERED: POLYETHYLENE GLYCOL (HEALTHYLAX) 3350 17 GM PACKET PO PRN (12:31)
[2023-05-20] MEDS ORDERED: BUPRENORPHINE HCL 150 MCG, BUPRENORPHINE HCL 75 MCG BC ONE (12:31)
[2023-05-20] MEDS ORDERED: METHOCARBAMOL 500 MG TABLET PO PRN (12:31)
[2023-05-20] MEDS ORDERED: cloNIDine HCL 0.1 MG TABLET PO ONE (12:31)
[2023-05-20] MEDS ORDERED: NALOXONE HCL (KLOXXADO) 8 MG SPRAY NS PRN (12:31)
[2023-05-20] MEDS ORDERED: IBUPROFEN 400 MG TABLET (FP) PO PRN (12:31)
[2023-05-20] MEDS ORDERED: DICYCLOMINE HCL 10 MG CAPSULE PO PRN (12:31)
[2023-05-20] MEDS ORDERED: IBUPROFEN 600 MG TABLET (FP) PO PRN (12:31)
[2023-05-20] MEDS ORDERED: MAG HYDROX/AL HYDROX/SIMETH 30 ML UNIT-DOSE CUP PO PRN (12:31)
[2023-05-20] MEDS ORDERED: BUPRENORPHINE HCL 150 MCG, BUPRENORPHINE HCL 75 MCG BC PRN (12:31)
[2023-05-20] MEDS ORDERED: guaiFENesin 600 MG TABLET.ER (FP) PO PRN (12:31)
[2023-05-20] MEDS ORDERED: BUPRENORPHINE HCL 150 MCG FILM BC ONE (13:39)
[2023-05-20] MEDS ORDERED: PRENATAL VITAMINS W/ FOLIC ACID TABLET (FP) PO ONE (13:40)
[2023-05-20] MEDS ORDERED: BUPRENORPHINE HCL 75 MCG FILM BC ONE (13:40)
[2023-05-20] MEDS ORDERED: cloNIDine HCL 0.1 MG TABLET ONE (13:40)
[2023-05-20] MEDS: PRENATAL VITAMINS W/ FOLIC ACID TABLET (FP) PO SCH (13:47)
[2023-05-20] MEDS ORDERED: NICOTINE 7 MG/24 HOURS TOPICAL PATCH TD ONE (13:48)
[2023-05-20] MEDS: NICOTINE 7 MG/24 HOURS TOPICAL PATCH TD SCH (13:49)
[2023-05-20 16:26] LABS: HEMATOCRIT 42.6 % (35.4-49); HEMOGLOBIN 14.4 GM/dL (11.7-16.9); MCH 27.6 pg (25.7-33.7); MCHC 33.8 g/dl (32.0-35.9); MEAN CELL VOLUME 81.7 fl (80-96); MEAN PLT VOLUME 9.5 fl (7.5-11.1); PLATELET COUNT 166 10^3/uL (134-434); RBC 5.21 M/mm3 (4.00-5.60); RDW 15.5 % (11.9-15.9); WHITE BLOOD COUNT 5.3 K/mm3 (4.0-10.0)
[2023-05-20 16:43] LABS: ALBUMIN 3.6 g/dl (3.4-5.0); BILIRUBIN,TOTAL 1.2 mg/dL (0.2-1); CALCIUM 8.5 mg/dL (8.5-10.1); CREATININE 0.7 mg/dL (0.55-1.3); POTASSIUM 4.4 mmol/L (3.5-5.1); TOT PROT 7.7 g/dl (6.4-8.2)
[2023-05-20] MEDS: MELATONIN 5 MG TABLETS PO SCH (22:57)
[2023-05-20] MEDS: THIAMINE HCL 100 MG TABLET (FP) PO SCH (22:57)
[2023-05-21] MEDS ORDERED: BUPRENORPHINE HCL 150 MCG, BUPRENORPHINE HCL 75 MCG BC PRN
[2023-05-21] MEDS: BUPRENORPHINE HCL 150 MCG, BUPRENORPHINE HCL 75 MCG BC SCH ×2 (06:09→17:16)
[2023-05-21] MEDS: PRENATAL VITAMINS W/ FOLIC ACID TABLET (FP) PO SCH (10:41)
[2023-05-21] MEDS: diazePAM 5 MG TABLET PO PRN ×2 (10:41→17:16)
[2023-05-21] MEDS: NICOTINE 7 MG/24 HOURS TOPICAL PATCH TD SCH (10:41)
[2023-05-21 12:59] VITALS: RESP 17
[2023-05-21] MEDS: cloNIDine HCL 0.1 MG TABLET PO PRN ×2 (12:59→18:16)
[2023-05-21] MEDS ORDERED: TRIMETHOBENZAMIDE HCL 200MG/2ML INJ IM ONE (17:32)
[2023-05-21] MEDS ORDERED: PROCHLORPERAZINE INJECTION 10 MG/2 ML VIAL IM PRN (17:47)
[2023-05-21] MEDS ORDERED: QUEtiapine FUMARATE 100 MG TABLET (FP) PO SCH (22:00)
[2023-05-21] MEDS: MELATONIN 5 MG TABLETS PO SCH (23:25)
[2023-05-21] MEDS: THIAMINE HCL 100 MG TABLET (FP) PO SCH (23:25)
[2023-05-22] MEDS: diazePAM 5 MG TABLET PO PRN (05:36)
[2023-05-22] MEDS ORDERED: BUPRENORPHINE HCL 450 MCG FILM BC SCH (06:00)
[2023-05-22 06:33] VITALS: BP 118/71; PULSE 41; TEMP 98.2
[2023-05-22] MEDS: PRENATAL VITAMINS W/ FOLIC ACID TABLET (FP) PO SCH (10:32)
[2023-05-22] MEDS: NICOTINE 7 MG/24 HOURS TOPICAL PATCH TD SCH (10:32)
[2023-05-23] MEDS ORDERED: BUPRENORPHINE/NALOXONE 4 MG/1 MG FILM PACKET SL SCH (06:00)
[2023-05-24] MEDS ORDERED: BUPRENORPHINE/NALOXONE 8 MG/2 MG FILM PACKET SL ONE (06:00)
== END 2023-05-22 08:50 | disposition left against medical advice (07) | DRG 770 ==
LOC: YASAS 11:18 → Y3N 15:14 → Y6N 05-21 12:48
PROVIDERS: ADMIT Allergy & Immunology; ATTEND Allergy & Immunology
PROC: HZ2ZZZZ Detoxification Services for Substance Abuse Treatment (ICD-10-PCS; principal; 2023-05-20)
DX: F11.23 Opioid dependence with withdrawal (principal); F14.20 Cocaine dependence, uncomplicated; F17.210 Nicotine dependence, cigarettes, uncomplicated; F19.282 Other psychoactive substance dependence with psychoactive substance-induced sleep disorder; F41.9 Anxiety disorder, unspecified; R74.01 Elevation of levels of liver transaminase levels; Z62.810 Personal history of physical and sexual abuse in childhood; Z86.19 Personal history of other infectious and parasitic diseases; Z86.59 Personal history of other mental and behavioral disorders; Z88.6 Allergy status to analgesic agent
CPT/HCPCS: 36415; 80053; 85027; 86780; 87635; 87811; Q0162

== ENCOUNTER 2024-05-20 15:05 | Inpatient (IN) | payer OTHER ==
[2024-05-20 17:21] VITALS: BMI 20.9
[2024-05-20] MEDS ORDERED: NALOXONE HCL 0.4 MG/ML VIAL IM PRN (21:25)
[2024-05-20] MEDS ORDERED: BENZONATATE 200 MG CAPSULE PO PRN (21:25)
[2024-05-20] MEDS ORDERED: DICYCLOMINE HCL 10 MG CAPSULE PO PRN (21:25)
[2024-05-20] MEDS ORDERED: BENZOCAINE/MENTHOL (CHLORASEPTIC ) LOZENGE MM PRN (21:25)
[2024-05-20] MEDS ORDERED: MAG HYDROX/AL HYDROX/SIMETH 30 ML UNIT-DOSE CUP PO PRN (21:25)
[2024-05-20] MEDS ORDERED: NICOTINE POLACRILEX 2 MG LOZENGE BC PRN (21:25)
[2024-05-20] MEDS ORDERED: MAGNESIUM HYDROX 2400MG/30ML ORAL SUSPENSION 30 ML CUP PO PRN (21:25)
[2024-05-20] MEDS ORDERED: ACETAMINOPHEN 325 MG TABLET (FP) PO PRN (21:25)
[2024-05-20] MEDS ORDERED: LOPERAMIDE HCL 2 MG CAPSULE PO PRN (21:25)
[2024-05-20] MEDS ORDERED: POLYETHYLENE GLYCOL (HEALTHYLAX) 3350 17 GM PACKET PO PRN (21:25)
[2024-05-20] MEDS ORDERED: NICOTINE POLACRILEX 2 MG GUM BUC PRN (21:25)
[2024-05-20] MEDS ORDERED: guaiFENesin 600 MG TABLET.ER (FP) PO PRN (21:25)
[2024-05-20] MEDS ORDERED: NALOXONE (NARCAN) HCL 4 MG/0.1 ML SPRAY NS PRN (21:25)
[2024-05-20] MEDS ORDERED: P-EPHED 60MG/TRIPROLIDI 2.5MG TABLET PO PRN (21:25)
[2024-05-21] MEDS: MELATONIN 5 MG TABLETS PO SCH (00:08)
[2024-05-21] MEDS: cloNIDine HCL 0.1 MG TABLET PO PRN (00:08)
[2024-05-21] MEDS: THIAMINE 100 MG TABLET PO SCH (00:10)
[2024-05-21] MEDS: PRENATAL VITAMINS W/ FOLIC ACID TABLET (FP) PO SCH (10:03)
[2024-05-21] MEDS: methaDONE HCL 10 MG TABLET (FOR DETOX USE ONLY) PO ONE (10:51)
[2024-05-21] MEDS: methaDONE HCL 10 MG TABLET PO ONE (11:01)
[2024-05-21] MEDS ORDERED: diazePAM 5 MG TABLET PO PRN ×2 (11:15→12:18)
[2024-05-21 11:33] LABS: HEMATOCRIT 40.9 % (35.4-49); MCHC 34.2 g/dl (32.0-35.9); MEAN CELL VOLUME 81.8 fl (80-96); MEAN PLT VOLUME 9.1 fl (7.5-11.1); PLATELET COUNT 234 10^3/uL (134-434); RDW 16.2 % (11.9-15.9); WHITE BLOOD COUNT 8.1 K/mm3 (4.0-10.0)
[2024-05-21 11:45] LABS: ALBUMIN 3.6 g/dl (3.4-5.0); BLOOD UREA NITROGEN 7.5 mg/dL (7-18); CALCIUM 9.1 mg/dL (8.5-10.1)
[2024-05-21 11:48] LABS: CREATININE 0.5 mg/dL (0.55-1.3)
[2024-05-21 11:50] LABS: BILIRUBIN,TOTAL 1.1 mg/dL (0.2-1); TOT PROT 7.9 g/dl (6.4-8.2)
[2024-05-21] MEDS ORDERED: TRIMETHOBENZAMIDE HCL 200MG/2ML INJ IM PRN (12:16)
[2024-05-21] MEDS: methaDONE HCL 10 MG TABLET PO PRN (18:51)
[2024-05-22 06:33] VITALS: BP 149/80; PULSE 60; RESP 16; TEMP 97.5
[2024-05-22] MEDS ORDERED: methaDONE 40 MG, methaDONE 10 MG PO ONE (10:00)
[2024-05-23] MEDS ORDERED: methaDONE HCL 10 MG TABLET (FOR DETOX USE ONLY) PO ONE (10:00)
[2024-05-23] MEDS ORDERED: methaDONE 40 MG, methaDONE 20 MG PO ONE (10:00)
[2024-05-24] MEDS ORDERED: methaDONE 40 MG, methaDONE 30 MG PO ONE (10:00)
[2024-05-25] MEDS ORDERED: methaDONE HCL 40 MG DISPERSABLE TABLET PO ONE (10:00)
[2024-05-25] MEDS ORDERED: methaDONE HCL 10 MG TABLET (FOR DETOX USE ONLY) PO ONE (10:00)
[2024-05-26] MEDS ORDERED: methaDONE 80 MG, methaDONE 10 MG PO ONE (10:00)
== END 2024-05-22 07:02 | disposition left against medical advice (07) | DRG 770 ==
LOC: YASAS 15:05 → Y6N 23:06
PROVIDERS: ADMIT Allergy & Immunology; ATTEND Surgery
PROC: HZ2ZZZZ Detoxification Services for Substance Abuse Treatment (ICD-10-PCS; principal; 2024-05-20)
DX: F11.23 Opioid dependence with withdrawal (principal); F14.20 Cocaine dependence, uncomplicated; F17.210 Nicotine dependence, cigarettes, uncomplicated; F20.9 Schizophrenia, unspecified; R74.01 Elevation of levels of liver transaminase levels; B18.2 Chronic viral hepatitis C; Z88.2 Allergy status to sulfonamides; Z88.6 Allergy status to analgesic agent; Z56.0 Unemployment, unspecified; Z59.00 Homelessness unspecified
CPT/HCPCS: 36415; 80053; 80305; 80307; 85027; 86780